=== PATIENT | male | born 2000 | race Two or more races ===

== ENCOUNTER 2025-08-22 23:17 | Emergency (ER) | payer MEDICAID, SELFPAY ==
[2025-08-22 23:25] VITALS: BP 138/86; PULSE 108; RESP 15; TEMP 37.3; O2SAT 98
--- NOTE | 2025-08-23 00:01 | XR_ITS ---
EXAMINATION: PA chest single view TECHNIQUE: Upright PA chest single view Date and time: August 23, 2025, 0154 hours INDICATIONS: Chest pain shortness of breath 2 days FINDINGS: Normal heart size Lungs are clear. The osseous structures are intact IMPRESSION: No active disease
[2025-08-23 00:30] LABS: Collection Type, Urine Voided
[2025-08-23 00:39] LABS: Bilirubin,Urine Negative (Negative); Blood,Urine 1+ (Negative); Clarity,Urine Clear (Clear/Hazy); Color,Urine Yellow (Lt Yel-Yel); Glucose, Urine Negative (Negative); Ketones,Urine Negative (Negative); Leukocyte Esterase,Urine Negative (Negative); Nitrite,Urine Negative (Negative); PH,Urine 6.5 (5.0-7.0); Protein,Urine 1+ (Neg - Trace); RBC,Urine 9 /hpf (0-3); Specific Gravity,Urine 1.034 (1.001-1.035); Squamous Epithelial Cell,Urine < 1 /hpf (0-5); Urobilinogen,Urine 2.0 mg/dL (0.0-1.0); WBC,Urine 3 /hpf (0-5)
--- NOTE | 2025-08-23 02:19 | EKG_ITS ---
[facility] Test Date: 2025-08-23 Pat Name: LEEROY ANDRADE Department: Room: - Gender: Male [employer]: : 2000 Requested By: Baron Nguyen Order Number: [id number] Reading MD: Baron Nguyen Measurements Intervals [place] Rate: 74 P: 60 DC: 155 QRS: 44 QRSD: 94 T: 40 QT: 375 QTc: 417 Interpretive Statements SINUS RHYTHM No previous ECG available for comparison /store/S0/[id number]/[id number].pdf
[2025-08-23 03:08] LABS: Troponin I < 0.020 ng/mL (0.0-0.045)
--- NOTE | 2025-08-23 03:58 | PD.EDURI ---
Upper Respiratory Inf. RME/HPI General Chief Complaint: Flu Like Symptoms Stated Complaint: WOKE UP SHAKING Time Seen by Provider: 08/22/25 23:47 Arrival date/time: 08/22/25 23:17 This is a case of 35-year-old male with no medical history came into the emergency room due to chills frontal headache bilateral ear pain body ache for 2 days patient states that he woke up shaking today thus decided to sought consult here in the emergency room patient is also complaining of chest pain pleuritic in character nonradiating no shortness of breath no wheezing no other symptoms noted no fever Limitations: no limitations Related Data Previous Rx's ?Medication ?Instructions ?Recorded cyclobenzaprine 5 mg tablet 5 mg PO Q8H PRN muscle spasm #14 04/17/24 tabs ibuprofen 800 mg tablet (IBU) 800 mg PO Q8H #20 tabs 04/17/24 amoxicillin 500 mg tablet 500 mg PO Q8H #30 tabs 08/23/25 ofloxacin 0.3 % ear drops 5 drp otic (ear) BID 7 days #10 mL 08/23/25 oseltamivir 75 mg capsule (Tamiflu) 75 mg PO BID 5 days #10 caps 08/23/25 Allergies Allergy/AdvReac Type Severity Reaction Status Date / Time No Known Allergies Allergy Verified 08/22/25 23:18 Review of Systems Review of Systems Systems Reviewed: All systems reviewed, normal except as documented Past Medical History Past Medical History CARDIAC: Negative Cardiac Disorders or Congestive Heart Failure RESPIRATORY: Negative Chronic Obstructive Pulmonary Disease (COPD) or Asthma GENITOURINARY: Negative Renal Disease ENDOCRINE: Negative Diabetes Mellitus Type 1 or Diabetes Mellitus Type 2 HEMATOLOGIC: Negative Sickle Cell Disease Social History SMOKING STATUS: Current every day smoker ED Exam General Limitations: Present no limitations General appearance: Present alert, in no apparent distress and other (Patient is awake alert oriented not in distress nontoxic looking well-hydrated well nourished) Head Head exam: Present atraumatic, normocephalic and normal inspection Eye Eye exam: Present normal appearance, PERRL, EOMI and other (PERRL EOM intact normal conjunctiva no papilledema) ENT ENT exam: Present normal exam, normal oropharynx, mucous membranes moist and other (Bilateral tympanic membrane red retracted bulging but not perforated ear canal red no discharge tender but no mastoid tenderness bilaterally nose and throat exam normal) Neck Neck exam: Present normal inspection, full ROM, trachea midline and other (Negative for meningeal sign); Absent tenderness, meningismus, lymphadenopathy or thyromegaly Chest Chest inspection: Present normal inspection and symmetric chest wall rise; Absent tenderness Respiratory Respiratory exam: Present normal lung sounds bilaterally; Absent respiratory distress, wheezes, stridor, accessory muscle use or prolonged expiratory phase Cardiovascular Cardiovascular exam: Present regular rate, normal rhythm and normal heart sounds; Absent bradycardia, tachycardia, irregular rhythm or systolic murmur Abdominal Exam Abdominal exam: Present soft and normal bowel sounds; Absent distention, tenderness, guarding, rebound, rigidity, diminished bowel sounds, hyperactive bowel sounds, hypoactive bowel sounds or organomegaly Extremities Exam Extremities exam: Present normal inspection and full ROM Back Exam Back exam: Present normal inspection and full ROM Neurological Exam Neurological exam: Present alert, oriented X3, CN II-XII intact, normal gait, reflexes normal and other (Awake alert oriented x 4 no focal deficit GCS 15/15 steady gait motor or sensory reflex were all normal in all extremities memory intact no slurring speech no facial droop negative Babinski); Absent motor sensory deficit Psychiatric Psychiatric exam: Present normal affect and normal mood Skin Skin exam: Present warm, dry, intact, normal color and other (Excellent skin turgor) Course Quality Measures none Orders Category Date Time Status Bedside COVID-19 Antigen Test NOW Care 08/23/25 00:01 Active Bedside Influenza A&B Antigen Test NOW Care 08/23/25 00:02 Completed Bedside STREP Test NOW Care 08/23/25 00:01 Active EKG (ED ONLY) *Do not use* NOW Care 08/23/25 02:19 Completed EKG (ED Only) Stat Exams 08/23/25 02:19 Draft XR chest 1V portable Stat Exams 08/23/25 00:01 Taken Troponin I Stat Lab 08/23/25 02:40 Completed Urinalysis Stat Lab 08/23/25 00:24 Completed Vital Signs Vital signs: Vital Signs Temperature 99.1 F 08/22/25 23:25 Pulse Rate 108 H 08/22/25 23:25 Respiratory Rate 15 08/22/25 23:25 Blood Pressure 138/86 H 08/22/25 23:25 Pulse Oximetry (%) 98 08/22/25 23:25 Oxygen Delivery Method Room Air 08/22/25 23:25 Oxygen saturation is 98% in room air Upper Respiratory Infection MDM Narrative MDM Narrative:: This is a case of 35-year-old male with no medical history came into the emergency room due to chills frontal headache bilateral ear pain body ache for 2 days patient states that he woke up shaking today thus decided to sought consult here in the emergency room patient is also complaining of chest pain pleuritic in character nonradiating no shortness of breath no wheezing no other symptoms noted no fever physical examination patient is awake alert oriented not in distress nontoxic looking well-hydrated well-nourished patient BP stable patient is slightly tachycardic at 108 we repeated the heart rate after 30 minutes and noted to be 95 not tachypneic not a febrile temperature is 99.1 not hypoxic oxygen saturation is 98% in room air excellent skin turgor negative for meningeal sign HEENT showed bilateral ear canal red tender but no mastoid tenderness bilaterally no discharge patient tympanic membrane bulging red but not perforated the rest of the HEENT exam is normal lungs sound is clear no crackles no rales no wheezing no retraction no stridor heart normal rate regular rhythm no murmur abdominal exam is benign nonsurgical no guarding no rebound no rigidity neurological exam is normal awake alert oriented x 4 no focal deficit GCS 15/15 steady gait blood test showed troponin is negative EKG is sinus rhythm heart rate of [address] elevation no depression at this point I do not think patient is dehydrated thus I did not ordered any blood test such as CBC CMP urinalysis were normal chest x-ray is normal read by me patient is negative for COVID negative for rapid strep but positive for influenza A based on my physical examination and history patient will be treated as chest pain of unknown etiology I do not think the chest pain is cardiopulmonary pathology not MD not pneumonia not pulmonary embolism patient was advised still to see a zipper measurer for chest pain for possible echocardiogram stress test and Holter monitor patient was prescribed with Tamiflu for influenza A and amoxicillin and ofloxacin for otitis media he was advised for any worsening symptoms and emergent concern return precaution in the ER is adsveid Patient was discharged with comfortable condition walking with stable gait. Patient verbalized no further complains explained diagnosis and answered patient question. Patient is comfortable with the proposed management plan including the need to follow up with his/her primary care physician and any specialist if applicable Discussed patient for any urgent condition or worsening sx, He/She needed to go to emergency room immediately or call 911. Patient acknowledge the responsibility to follow up as instructed and to monitor her/his symptoms. For any persistence of the symptoms for more than 3-5 days return precaution advised. Discussed the result of the test and was given printed discharge instruction Patient data External records reviewed:: [facility] previous records Clinical information provided by:: patient Social determinants that could affect healthcare access:: none Patient has the following chronic illnesses:: None How is presenting disease/condition affected by chronic disease/condition?: no chronic disease Evaluation data The following diagnostics were reviewed and interpreted by me:: lab results, radiology exam(s) and EKG tracing(s) Lab and/or radiology exams considered but not ordered:: Reviewed Interpretation Summary: Reviewed Medications / Prescriptions Medications or Prescriptions considered but not ordered:: Given Medication administrations:: Given Consultations Consultation(s) initiated? (list below): No Diagnosis Upper Respiratory Differential Diagnosis: upper respiratory infection, otitis media, sinusitis, viral infection, bronchitis, influenza and pharyngitis Most likely diagnosis given after review of the tests above:: Influenza A otitis media Admission Indicated Admission indicated?: not indicated Explain why admission is indicated or not indicated:: Not indicated Admission Request Was there a request for admission?: No Admission Attestation Admission request attestation: Not indicated Disposition Plan Disposition Plan: Discharge Discharge Attestation Discharge Attestation: The patient and all family members were given an opportunity to ask questions and understood the discharge instructions. Discharge instructions specifically effects, indications for sooner follow up or return to the emergency department, and the expected course of current diagnosis. Patient condition: Stable Discharge Plan Plan Patient Disposition: HOME (Self Care) Patient condition on transfer: Stable Prescriptions/Referrals Prescriptions/Med Rec: New oseltamivir [Tamiflu] 75 mg capsule 75 mg PO BID 5 Days Qty: 10 0RF amoxicillin 500 mg tablet 500 mg PO Q8H Qty: 30 0RF ofloxacin 0.3 % drops 5 drp otic (ear) BID 7 Days Qty: 10 0RF No Action ibuprofen [IBU] 800 mg tablet 800 mg PO Q8H Qty: 20 0RF cyclobenzaprine 5 mg tablet 5 mg PO Q8H PRN (Reason: muscle spasm) Qty: 14 0RF Referrals: No Primary/Family,Physician [Primary Care Provider] - In 1 week Problem List Clinical Impression: Influenza A, Otitis media, Chest pain of unknown etiology Patient/Caregiver Discharge Instructions Education Materials: ED Chest Pain, Uncertain Cause, ED Influenza (Adult), ED Otitis Media Antibiotic ... Additional Instructions: It is very important to see a zipper measurer for further evaluation and treatment of your chest pain for possible echocardiogram stress test and Holter monitor follow-up with your primary care physician in 2 days for reevaluation worsening symptoms symptoms or any emergent concern call 911 or go to the nearest emergency room take your medication as directed finish the course of antibiotic no Q-tips no cotton balls prevent water to enter both ears no swimming is advised keep hydrated Print Language: Burmese Stand Alone Forms: Michelle Award Info., Patient Portal Info Letter PA/OPERATIONS STAFF SPECIALIST SECURITY Supervising Physician PA/OPERATIONS STAFF SPECIALIST SECURITY Supervising Physician: Dr. Lexi Tom
== END 2025-08-23 04:00 | disposition home or self-care (01) ==
PROVIDERS: Nurse Practitioner Family; Emergency Provider Emergency Medicine
DX: J10.83 Influenza due to other identified influenza virus with otitis media (principal); R07.9 Chest pain, unspecified; F17.210 Nicotine dependence, cigarettes, uncomplicated
CPT/HCPCS: 36415; 71045; 81001; 84484; 87502; 87635; 87651; 93005; 99283